=== PATIENT | female | born 1960 | race Caucasian/White ===

== ENCOUNTER 2016-06-09 11:15 | Outpatient (CLI) | payer OTHER ==
--- NOTE | 2016-06-09 11:49 | DIAGNOSTIC IMAGING REPORT ---
PROCEDURE: XR FOOT 3 VIEWS - LEFT INDICATION: WOUND TECHNIQUE: Three views. COMPARISON: None. FINDINGS: No evidence of osteolysis or osteomyelitis. There is osteoarthritis and hallux valgus. IMPRESSION: 1. No evidence of osteolysis or osteomyelitis.
== END 2016-06-09 23:00 ==
LOC: XR SRH 11:15
DX: E11.621 Type 2 diabetes mellitus with foot ulcer (principal); L97.521 Non-pressure chronic ulcer of other part of left foot limited to breakdown of skin